=== PATIENT | male | born 1980 | race Caucasian/White ===

== ENCOUNTER 2019-09-29 06:57 | Emergency (ER) | payer SELFPAY ==
--- NOTE | 2019-09-29 08:32 | Emergency Department Report ---
Minor Respiratory - HPI Chief Complaint: Dyspnea/Respdistress Stated Complaint: DIFFICULTY IN BREATHING Time Seen by Provider: 09/29/19 08:29 Duration: 2 Days Pain Location: Throat Severity: severe Minor Respiratory: Yes Able to Tolerate Fluids, Yes Shortness of Breath, No Rhinorrhea, No Sore Throat, No Ear Pain, No Cough, No Sick Contacts, No Hemoptysis, No Chest Pain, No Fever Other History: This is a 39-year-old patient here report that he is having difficulty breathing for 2 days with tingling in the chest. Reports some pain on inspiration at 4/10. Pain feels tight located to mid chest, intermittent. Denies any difficulty breathing at present. Denies any chest pain at present. Denies any fever or chills, nausea vomiting or diarrhea. Denies any cough and runny nose or congestion. No medication taken prior to coming to the emergency room. ED Review of Systems ROS: Stated complaint: DIFFICULTY IN BREATHING Other details as noted in HPI Constitutional: weakness. denies: chills, fever Eyes: denies: eye pain ENT: denies: ear pain, throat pain, congestion Respiratory: shortness of breath, SOB with exertion, other (Patient able to have conversation without any difficulty in breathing. No increased work of breathing noted.). denies: cough, SOB at rest, stridor, wheezing Cardiovascular: chest pain (Reports occasional pain with inspiration to mid chest). denies: palpitations, edema, syncope Gastrointestinal: denies: abdominal pain, nausea, vomiting, hematemesis, hematochezia Genitourinary: denies: dysuria, hematuria Musculoskeletal: denies: back pain, arthralgia, myalgia Skin: denies: rash Neurological: denies: headache, vertigo ED Past Medical Hx - Past Medical History Previous Medical History?: Yes Hx Asthma: Yes (as child) - Surgical History Past Surgical History?: No - Family History Family history: no significant - Social History Smoking Status: Never Smoker Substance Use Type: None Minor Respiratory Exam - Exam General: Vital signs noted. No distress. Alert and acting appropriately. This is a 39-year-old male well-nourished well-developed in no acute distress. Nontoxic in appearance HEENT: Yes Moist Mucous Membranes, No Pharyngeal Erythema, No Pharyngeal Exudates, No Rhinorrhea, No Conjuctival Injection, No Frontal Tenderness, No Maxillary Tenderness Ear: Neither TM Bulge, Neither TM Erythema, Neither EAC Pain, Neither EAC Discharge Neck: Yes Supple, No Adenopathy Lungs: Yes Good Air Exchange, No Wheezes, No Ronchi, No Stridor, No Cough, No Labored Respirations, No Retractions, No Use of Accessory Muscles, No Other Abnormal Lung Sounds Heart: Yes Regular, No Murmur Abdomen: Yes Normal Bowel Sounds (Normal bowel sounds. Nontender to palpate in all quadrants), No Tenderness, No Peritoneal Signs Skin: No Rash, No Edema Neurologic: Alert and oriented, no deficits. Musculoskeletal: Unremarkable. ED Course Vital Signs 09/29/19 06:58 Temperature 98.5 F Pulse Rate 99 H Respiratory 18 Rate Blood Pressure 152/95 O2 Sat by Pulse 100 Oximetry - Reevaluation(s) Reevaluation #1: 09/29/19 09:48 Stable in no acute distress. No change in assessment. ED Medical Decision Making - Radiology Data Radiology results: report reviewed Chest x-ray PA and lateral dictated by radiologist and report reviewed by myself. See report below Findings [address] [address] XRay Report Signed Patient: ZULAY CARCAMO MR# : [id number] : 1980 Acct:[id number] Age/Sex: 39 / M ADM Date: 09/29/19 Loc: ED Attending Dr: Ordering Physician: CHARISSE DUQUE Date of Service: 09/29/19 Procedure(s): XR chest routine 2V Accession Number(s): [id number] cc: CHARISSE DUQUE Fluoro Time In Minutes: CHEST 2 VIEWS INDICATION: cough, sob. COMPARISON: None FINDINGS: Support devices: None. Heart: Within normal limits. Lungs/pleura: No acute air space or interstitial disease. No pneumothorax. Additional findings: Mild thoracolumbar scoliosis. IMPRESSION: No acute findings. These findings were discussed with CHARISSE Sherman in the emergency department at 0940 hours EST. Signer Name: Hema Segundo Jr, MD Signed: 09/29/2019 9:44 AM Workstation Name: [id number] Transcribed By: TTR Dictated By: HEMA SEGUNDO JR, MD Electronically Authenticated By: HEMA SEGUNDO JR, MD Signed Date/Time: 09/29/19943 DD/ 3 TD/TT: - Medical Decision Making Patient stable throughout ED course. He has no difficulty breathing or chest pain while in emergency room. Patient was concerned about ayala and inquired about tests and I gave him information on the virus and reassured him that his vital signs are stable, and no fever. I also discussed with him if his symptoms worsen to return to the emergency room otherwise follow-up with his primary care physician and information given on coronavirus from [facility] and [facility]. ANABEL score is 0 and heart score less than 2 based on MD Calc. I discussed with him that his x-ray shows normal findings. Patient is stable. - Differential Diagnosis PNA, bronchitis, upper respiratory infection, allergies Critical care attestation.: If time is entered above; I have spent that time in minutes in the direct care of this critically ill patient, excluding procedure time. ED Disposition Clinical Impression: Chest pain, atypical, Shortness of breath on exertion Disposition: DC-01 TO HOME OR SELFCARE Is pt being admited?: No Does the pt Need Aspirin: No Condition: Stable Instructions: Chest Pain (ED) Additional Instructions: Please follow-up with your primary care physician in 1 to 2 days. If your condition worsens, return to the emergency room Rest and increase your fluid intake See discharge instructions given an additional information on coronavirus. Referrals: DUKE CLAUDIO MD [Primary Care Provider] - 09/30/19
--- NOTE | 2019-09-29 09:49 | XRay Report ---
CHEST 2 VIEWS INDICATION: cough, sob. COMPARISON: None FINDINGS: Support devices: None. Heart: Within normal limits. Lungs/pleura: No acute air space or interstitial disease. No pneumothorax. Additional findings: Mild thoracolumbar scoliosis. IMPRESSION: No acute findings. These findings were discussed with CHARISSE Sherman in the emergency department at 0940 hours EST. Signer Name: Hema Segundo Jr, MD Signed: 09/29/2019 9:44 AM Workstation Name: [id number]
[2019-09-29 10:54] VITALS: BP 150/90
== END 2019-09-29 10:53 | disposition home or self-care (01) ==
LOC: ED 06:57
DX: R06.02 Shortness of breath (principal); J45.909 Unspecified asthma, uncomplicated
CPT/HCPCS: 71046; 99283